=== PATIENT | male | born 1960 | race Caucasian/White ===

== ENCOUNTER 2017-06-30 18:12 | Observation (INO) | payer MEDICARE, OTHER ==
[2017-06-30] MEDS ORDERED: ASPIRIN 81 MG PO STA (18:29)
[2017-06-30] MEDS ORDERED: NITROGLYCERIN SL TABS 0.4 MG TAB SUBLINGUAL STA (18:29)
--- NOTE | 2017-06-30 18:34 | ED ---
Chest Pain HPI - General Chief Complaint: Chest Pain Stated Complaint: Chest pain Time Seen by Provider: 06/30/17 18:26 Source: patient, RN notes reviewed Mode of arrival: wheelchair Limitations: no limitations - History of Present Illness Initial Comments: 57-year-old male presents emergency Department chief complaint of chest pain that started a few hours prior arrival. Patient states it's centralized chest pain nonradiating. Patient states he did take a nitro prior to arrival and that helped some. He did not take any aspirin today. Patient has a history of CVA, hyperlipidemia, hypertension, smoker. Patient denies any history of diabetes. Patient denies any prior cardiac stents. He did have a heart cath in 2013. Patient denies any nausea, vomiting, diarrhea constipation. He does have some mild shortness of breath but states this is normal for his COPD. Patient believes he has had a blood clot before and he states that was next to his heart. Patient denies any diaphoretic episodes denies pain in his jaw or left arm. - Related Data Home Medications Medication Instructions Recorded Confirmed Carvedilol 25 mg PO BID 12/21/13 06/30/17 Isosorbide Mononitrate [Imdur] 30 mg PO DAILY 12/21/13 06/30/17 Aspirin 325 mg PO DAILY 12/23/13 06/30/17 Acetaminophen [Tylenol] 325 mg PO Q4H PRN 06/30/17 06/30/17 Atorvastatin [Lipitor] 20 mg PO DAILY 06/30/17 06/30/17 Furosemide [Lasix] 20 mg PO DAILY 06/30/17 06/30/17 Mometasone/Formoterol [Dulera 200 2 puff INHALATION RT-BID 06/30/17 06/30/17 Mcg/5 Mcg Inhaler] NIFEdipine [NIFEdipine ER] 30 mg PO DAILY 06/30/17 06/30/17 Nitroglycerin Sl Tabs [Nitrostat] 0.4 mg SUBLINGUAL Q5M PRN 06/30/17 06/30/17 Omeprazole 20 mg PO DAILY 06/30/17 06/30/17 Potassium Chloride [K-Tab ER] 10 meq PO DAILY 06/30/17 06/30/17 Allergies Allergy/AdvReac Type Severity Reaction Status Date / Time No Known Allergies Allergy Verified 06/30/17 18:47 Review of Systems ROS Statement: Those systems with pertinent positive or pertinent negative responses have been documented in the HPI. ROS Other: All systems not noted in ROS Statement are negative. EKG Findings - EKG Comments: EKG Findings:: EKG performed at 18:24 normal sinus rhythm with left axis deviation rate of 83 IN 176 QRS 18 QTC is QTC 386/453 there is Q waves noted Past Medical History Past Medical History: Coronary Artery Disease (CAD), Chest Pain / Angina, CVA/ TIA Additional Past Medical History / Comment(s): PT STATES HAD BLOOD CLOT NEAR HEART WAS PASSING OUT- HAD STROKE & SEVERAL TIA'S- AFFECTED SPEECH. PT STATES HARD TO WALK VERY FAR History of Any Multi-Drug Resistant Organisms: None Reported Past Surgical History: Adenoidectomy, Heart Catheterization, Tonsillectomy Additional Past Surgical History / Comment(s): HEART CATH 2000 AND . TONSILS & ADENOIDS REMOVED Past Anesthesia/Blood Transfusion Reactions: No Reported Reaction Past Psychological History: No Psychological Hx Reported Smoking Status: Current every day smoker Past Alcohol Use History: None Reported Past Drug Use History: None Reported - Past Family History Father Family Medical History: COPD Additional Family Medical History / Comment(s): FROM PERFORATED GASTRIC ULCER Mother Family Medical History: Cancer Additional Family Medical History / Comment(s): Patient stated mom of cancer, but not sure what kind. Sister(s) Family Medical History: Cancer Additional Family Medical History / Comment(s): Patient stated that little sister of lung cancer about at 30. General Exam Limitations: no limitations Course Vital Signs 06/30/17 06/30/17 06/30/17 18:16 18:38 18:45 Temperature 98.1 F Pulse Rate 86 85 82 Respiratory 20 18 18 Rate Blood Pressure 216/96 199/88 190/91 O2 Sat by Pulse 96 96 99 Oximetry 06/30/17 06/30/17 18:52 19:08 Temperature Pulse Rate 88 77 Respiratory 16 16 Rate Blood Pressure 173/82 182/84 O2 Sat by Pulse 98 100 Oximetry Chest Pain MDM - MDM 57-year-old male present emergency Department chief complaint of chest pain. Patient's lab work is essentially unremarkable EKG does not show any acute changes. Patient will be admitted for cardiology evaluation placed on heparin. Disposition Clinical Impression: Chest pain Disposition: ADMITTED IP TO THIS HOSP Condition: Stable Referrals: Yao Tinajero DO [Primary Care Provider] - 1-2 days
[2017-06-30 18:50] LABS: Basophils # (A) 0.1 k/uL (0-0.2); Basophils % (A) 1 %; Eosinophils # (A) 0.4 k/uL (0-0.7); Eosinophils % (A) 5 %; HCT 46.8 % (39.0-53.0); HGB 15.4 gm/dL (13.0-17.5); Lymphocytes # (A) 2.3 k/uL (1.0-4.8); Lymphocytes % (A) 25 %; MCH 32.8 pg (25.0-35.0); MCHC 32.8 g/dL (31.0-37.0); MCV 99.9 fL (80.0-100.0); Mean Platelet Volume 7.9; Monocytes # (A) 0.4 k/uL (0-1.0); Monocytes % (A) 4 %; Neutrophils # (A) 6.2 k/uL (1.3-7.7); Neutrophils % (A) 65 %; Platelet Count 164 k/uL (150-450); RBC 4.69 m/uL (4.30-5.90); RDW 13.5 % (11.5-15.5); WBC 9.5 k/uL (3.8-10.6)
[2017-06-30] MEDS ORDERED: NITROGLYCERIN OINT 1 INCH/GM PACKET TOPICAL STA (18:59)
[2017-06-30 19:04] LABS: D-Dimer 0.38 mg/L FEU (<0.60)
[2017-06-30 19:06] LABS: ALT 30 U/L (21-72); AST 14 U/L (17-59); Albumin 4.3 g/dL (3.5-5.0); Alkaline Phosphatase 89 U/L (38-126); Anion Gap 9 mmol/L; Blood Urea Nitrogen 8 mg/dL (9-20); Calcium 9.7 mg/dL (8.4-10.2); Carbon Dioxide 25 mmol/L (22-30); Chloride 108 mmol/L (98-107); Glucose 113 mg/dL (74-99); Lipase 77 U/L (23-300); Magnesium 1.9 mg/dL (1.6-2.3); Potassium 3.8 mmol/L (3.5-5.1); Sodium 142 mmol/L (137-145); Total Bilirubin 0.3 mg/dL (0.2-1.3); Total Protein 7.1 g/dL (6.3-8.2)
[2017-06-30 19:08] LABS: Creatine Kinase 46 U/L (55-170); INR 1.1 (<1.2); Partial Thromboplastin Time 28.4 sec (22.0-30.0); Prothrombin Time 10.3 sec (9.0-12.0)
--- NOTE | 2017-06-30 19:10 | XR ---
EXAMINATION: XR chest 2V DATE AND TIME: 06/30/2017 7:00 PM ORDERING PROVIDER: Ayo Menendez CLINICAL INDICATION: Chest Pain TECHNIQUE: PA and lateral COMPARISON: None. DESCRIPTION: The lungs are clear. The pleural spaces are negative. The cardiac silhouette is not enlarged. The mediastinal and pleural silhouettes are unremarkable. The skeletal structures are intact without focal findings. The soft tissues are unremarkable; the bilateral small opacities over the lower lung zones are consis tent with mildly prominent mammary tissue - within normal limits. IMPRESSION: NO ACUTE PROCESS.
[2017-06-30 19:21] LABS: Troponin I <0.012 ng/mL (0.000-0.034)
[2017-06-30 19:27] LABS: Creatine Kinase MB 0.3 ng/mL (0.0-2.4)
[2017-06-30 20:27] VITALS: RESP 18
[2017-06-30] MEDS ORDERED: HEPARIN SODIUM,PORCINE 5,000 UNIT/ML 1 ML VIAL IV ONE (20:44)
[2017-06-30] MEDS ORDERED: NITROGLYCERIN SL TABS 0.4 MG TAB SUBLINGUAL PRN (20:44)
[2017-06-30] MEDS ORDERED: HEPARIN SOD,PORK IN 0.45% NACL 25,000 UNIT in 0.45% NACL 1 500ML.BAG IV SCH (20:45)
[2017-06-30 22:01] VITALS: BMI 29.7
[2017-06-30] MEDS ORDERED: ACETAMINOPHEN TAB 325 MG TAB PO PRN (22:06)
[2017-06-30] MEDS ORDERED: METOPROLOL TARTRATE 5 MG/5 ML VIAL IVP PRN (22:09)
[2017-06-30] MEDS ORDERED: ALPRAZolam 0.25 MG TAB PO STA (22:09)
[2017-06-30] MEDS ORDERED: MORPHINE SULFATE 5 MG/ML SYRINGE IVP PRN (22:10)
[2017-06-30] MEDS: CARVEDILOL 12.5 MG TAB PO SCH (23:04)
[2017-06-30] MEDS: NICOTINE 21MG/24HR PATCH TRANSDERM SCH (23:05)
[2017-07-01 01:11] LABS: Creatine Kinase 41 U/L (55-170)
[2017-07-01 01:25] LABS: Creatine Kinase MB 0.4 ng/mL (0.0-2.4); Troponin I <0.012 ng/mL (0.000-0.034)
[2017-07-01 03:49] LABS: Cholesterol 141 mg/dL (<200); HDL Cholesterol 25 mg/dL (40-60); LDL Cholesterol,Calculated 83 mg/dL (0-99); Triglycerides 163 mg/dL (<150)
[2017-07-01] MEDS ORDERED: HEPARIN SODIUM,PORCINE 5,000 UNIT/ML 1 ML VIAL IV PRN (05:16)
[2017-07-01] MEDS: CARVEDILOL 12.5 MG TAB PO SCH (06:29)
[2017-07-01 06:53] LABS: Creatine Kinase 35 U/L (55-170)
[2017-07-01 07:06] LABS: Creatine Kinase MB 0.3 ng/mL (0.0-2.4); Troponin I <0.012 ng/mL (0.000-0.034)
[2017-07-01] MEDS ORDERED: PANTOPRAZOLE 40 MG TABLET PO SCH (07:30)
[2017-07-01] MEDS ORDERED: SYMBICORT 160-4.5 MCG INHALER INHALATION SCH (08:00)
[2017-07-01] MEDS ORDERED: NIFEdipine XL 30 MG TAB.ER.24 PO SCH (09:00)
[2017-07-01] MEDS ORDERED: ASPIRIN 325 MG TAB PO SCH (09:00)
[2017-07-01] MEDS ORDERED: ISOSORBIDE MONONITRATE ER 30 MG TAB.ER.24H PO SCH (09:00)
[2017-07-01] MEDS ORDERED: ATORVASTATIN 20 MG TAB PO SCH (09:00)
[2017-07-01] MEDS ORDERED: FUROSEMIDE 20 MG TAB PO SCH (09:00)
[2017-07-01] MEDS ORDERED: POTASSIUM CHLORIDE ER 10 MEQ TAB.ER.PRT PO SCH (09:00)
[2017-07-01] MEDS: NICOTINE 21MG/24HR PATCH TRANSDERM SCH (09:34)
--- NOTE | 2017-07-01 10:25 | P.CRDCN ---
History of Present Illness Consult date: 07/01/17 Requesting physician: Debra Murphy Consult reason: chest pain Chief complaint: Chest pain History of present illness: This is a 57-year-old gentleman with history of hypertension, prior CVA, hyperlipidemia, nicotine dependence, patient states he smokes one half pack cigarettes per day, used to smoke 3 packs of cigarettes per day, patient also has history of prior cardiac catheterization performed in 2013 which revealed a normal LAD, second obtuse marginal branch had approximately a 50% ostial stenosis at that time, RCA was small and nondominant and mild diffusely diseased. Maximal medical therapy was advised at that time. Patient presents to the hospital with symptoms of chest discomfort, states that he was helping to of his stepsons move her car, when he developed the symptoms. He denies any associated shortness of breath, no diaphoresis or nausea. Patient states he did take a sublingual nitroglycerin which gave him minimal relief of symptoms but did not take care of the pain completely. For this reason he came to the emergency room for further evaluation. Initial EKG on arrival here showed a normal sinus rhythm with left axis deviation and ST-T wave changes in the lateral leads. Subsequent EKG performed showed normal sinus rhythm with T-wave abnormality in the lateral leads, upon review of prior EKGs, patient was also noted to have similar changes in the lateral leads. Laboratory data was reviewed, troponins were negative 3. Sodium 142, potassium 3.8, BUN 8, creatinine 0.6. D-dimer 0.3. CBC normal. Blood pressure 126/80 with heart rate in the 70s, temperature 90.7, 99 on room air. At the time of my examination this morning, patient is currently chest pain-free. Currently on aspirin 325 mg daily, Lipitor 20 mg daily, Coreg 25 mg twice a day, Nitropaste. Past Medical History Past Medical History: Coronary Artery Disease (CAD), Chest Pain / Angina, CVA/ TIA Additional Past Medical History / Comment(s): PT STATES HAD BLOOD CLOT NEAR HEART WAS PASSING OUT- HAD STROKE & SEVERAL TIA'S- AFFECTED SPEECH. PT STATES HARD TO WALK VERY FAR History of Any Multi-Drug Resistant Organisms: None Reported Past Surgical History: Adenoidectomy, Heart Catheterization, Tonsillectomy Additional Past Surgical History / Comment(s): HEART CATH 2000 AND . TONSILS & ADENOIDS REMOVED Past Anesthesia/Blood Transfusion Reactions: No Reported Reaction Past Psychological History: No Psychological Hx Reported Smoking Status: Current every day smoker Past Alcohol Use History: None Reported Past Drug Use History: None Reported - Past Family History Father Family Medical History: COPD Additional Family Medical History / Comment(s): FROM PERFORATED GASTRIC ULCER Mother Family Medical History: Cancer Additional Family Medical History / Comment(s): Patient stated mom of cancer, but not sure what kind. Sister(s) Family Medical History: Cancer Additional Family Medical History / Comment(s): Patient stated that little sister of lung cancer about at 30. Medications and Allergies Home Medications Medication Instructions Recorded Confirmed Type Carvedilol 25 mg PO BID 12/21/13 06/30/17 History Isosorbide Mononitrate [Imdur] 30 mg PO DAILY 12/21/13 06/30/17 History Aspirin 325 mg PO DAILY 12/23/13 06/30/17 History Acetaminophen [Tylenol] 325 mg PO Q4H PRN 06/30/17 06/30/17 History Atorvastatin [Lipitor] 20 mg PO DAILY 06/30/17 06/30/17 History Furosemide [Lasix] 20 mg PO DAILY 06/30/17 06/30/17 History Mometasone/Formoterol [Dulera 200 2 puff INHALATION RT-BID 06/30/17 06/30/17 History Mcg/5 Mcg Inhaler] NIFEdipine [NIFEdipine ER] 30 mg PO DAILY 06/30/17 06/30/17 History Nitroglycerin Sl Tabs [Nitrostat] 0.4 mg SUBLINGUAL Q5M PRN 06/30/17 06/30/17 History Omeprazole 20 mg PO DAILY 06/30/17 06/30/17 History Potassium Chloride [K-Tab ER] 10 meq PO DAILY 06/30/17 06/30/17 History Allergies Allergy/AdvReac Type Severity Reaction Status Date / Time No Known Allergies Allergy Verified 06/30/17 18:47 Physical Exam Vitals: Vital Signs Temp Pulse Pulse Resp BP BP Pulse Ox 07/01/17 04:00 97.0 F L 72 18 126/82 99 07/01/17 00:10 96.5 F L 73 18 158/72 96 06/30/17 21:35 96.7 F L 73 18 199/106 97 06/30/17 21:12 98.3 F 80 18 178/83 99 06/30/17 20:25 77 18 185/81 99 06/30/17 19:08 77 16 182/84 100 06/30/17 18:52 88 16 173/82 98 06/30/17 18:45 82 18 190/91 99 06/30/17 18:38 85 18 199/88 96 06/30/17 18:16 98.1 F 86 20 216/96 96 Intake and Output 06/30/17 07/01/17 07/01/17 22:59 06:59 14:59 Intake Total 162.333 Balance 162.333 Intake: Intake, IV Titration 162.333 Amount Heparin Sod,Pork in 0.45% 162.333 NaCl 25,000 unit In 0.45 % NaCl 1 500ml.bag @ 20 mls/hr IV .Q24H [facility] Rx#: [id number] Other: Voiding Method Toilet # Voids 1 Weight 91.172 kg 94.8 kg PHYSICAL EXAMINATION: HEENT: Head is atraumatic, normocephalic. Pupils equal, round. Neck is supple. There is no elevated jugular venous pressure. HEART EXAMINATION: Heart S1, S2 normal. No murmur or gallop heard. CHEST EXAMINATION: Lungs are clear to auscultation and precussion. No chest wall tenderness is noted on palpation or with deep breathing. ABDOMEN: Soft, nontender. Bowel sounds are heard. No organomegaly noted. EXTREMITIES: 2+ peripheral pulses with no evidence of peripheral edema and no calf tenderness noted. NEUROLOGIC patient is awake, alert and oriented -3. . Results 06/30/17 18:37 06/30/17 18:37 Cardiac Enzymes 06/30/17 06/30/17 07/01/17 Range/Units 18:37 18:37 00:23 AST 14 L (17-59) U/L CK-MB (CK-2) 0.3 0.4 (0.0-2.4) ng/mL Troponin I <0.012 <0.012 (0.000-0.034) ng/mL 07/01/17 Range/Units 05:47 AST (17-59) U/L CK-MB (CK-2) 0.3 (0.0-2.4) ng/mL Troponin I <0.012 (0.000-0.034) ng/mL Coagulation 06/30/17 07/01/17 Range/Units 18:37 02:57 PT 10.3 (9.0-12.0) sec APTT 28.4 33.2 H (22.0-30.0) sec Lipids 07/01/17 Range/Units 02:57 Triglycerides 163 H (<150) mg/dL Cholesterol 141 (<200) mg/dL HDL Cholesterol 25 L (40-60) mg/dL CBC 06/30/17 Range/Units 18:37 WBC 9.5 (3.8-10.6) k/uL RBC 4.69 (4.30-5.90) m/uL Hgb 15.4 (13.0-17.5) gm/dL Hct 46.8 (39.0-53.0) % Plt Count 164 (150-450) k/uL Comprehensive Metabolic Panel 06/30/17 Range/Units 18:37 Sodium 142 (137-145) mmol/L Potassium 3.8 (3.5-5.1) mmol/L Chloride 108 H (98-107) mmol/L Carbon Dioxide 25 (22-30) mmol/L BUN 8 L (9-20) mg/dL Creatinine 0.63 L (0.66-1.25) mg/dL Glucose 113 H (74-99) mg/dL Calcium 9.7 (8.4-10.2) mg/dL AST 14 L (17-59) U/L ALT 30 (21-72) U/L Alkaline Phosphatase 89 (38-126) U/L Total Protein 7.1 (6.3-8.2) g/dL Albumin 4.3 (3.5-5.0) g/dL Current Medications Generic Name Dose Route Start Last Admin Trade Name Freq PRN Reason Stop Dose Admin Acetaminophen 325 mg 06/30/17 22:06 Tylenol Tab PO Q4H PRN Pain Aspirin 325 mg 07/01/17 09:00 07/01/17 09:35 Aspirin PO 325 mg DAILY MICHAEL Administration Atorvastatin Calcium 20 mg 07/01/17 09:00 07/01/17 09:34 Lipitor PO 20 mg DAILY MICHAEL Administration Budesonide/Formoterol Fumarate 2 puff 07/01/17 08:00 07/01/17 08:42 Symbicort 160-4.5 Mcg Inhaler INHALATION 2 puff RT-BID MICHAEL Administration Carvedilol 25 mg 06/30/17 22:15 07/01/17 06:29 Coreg PO 25 mg AC-BID MICHAEL Administration Furosemide 20 mg 07/01/17 09:00 07/01/17 09:35 Lasix PO 20 mg DAILY MICHAEL Administration Heparin Sodium (Porcine) 0 unit 07/01/17 05:16 07/01/17 06:27 Heparin IV 4,000 unit PER PROTOCOL PRN Administration Low PTT Protocol Heparin Sodium/Sodium Chloride 500 mls @ 20 mls/hr 06/30/17 20:45 07/01/17 05 :17 25,000 unit/ Sodium Chloride IV 13.9 units/kg/hr .Q24H MICHAEL 25.34 mls/hr Protocol Titration Isosorbide Mononitrate 30 mg 07/01/17 09:00 07/01/17 09:35 Imdur PO 30 mg DAILY MICHAEL Administration Metoprolol Tartrate 10 mg 06/30/17 22:09 Lopressor IVP Q6HR PRN for SBP >160 Morphine Sulfate 4 mg 06/30/17 22:10 Morphine Sulfate IVP Q6HR PRN Moderate to Severe Pain Nicotine 1 patch 06/30/17 22:15 07/01/17 09:34 Habitrol 21mg/24hr Patch TRANSDERM 1 patch DAILY MICHAEL Administration Nifedipine 30 mg 07/01/17 09:00 07/01/17 09:35 Procardia Xl PO 30 mg DAILY MICHAEL Administration Nitroglycerin 0.4 mg 06/30/17 20:44 Nitrostat SUBLINGUAL Q5M PRN Chest Pain Pantoprazole Sodium 40 mg 07/01/17 07:30 07/01/17 06:28 Protonix PO 40 mg AC-BRKFST MICHAEL Administration Potassium Chloride 10 meq 07/01/17 09:00 07/01/17 09:35 K-Dur 10 PO 10 meq DAILY MICHAEL Administration Intake and Output 06/30/17 07/01/17 07/01/17 22:59 06:59 14:59 Intake Total 162.333 Balance 162.333 Intake: Intake, IV Titration 162.333 Amount Heparin Sod,Pork in 0.45% 162.333 NaCl 25,000 unit In 0.45 % NaCl 1 500ml.bag @ 20 mls/hr IV .Q24H MICHAEL Rx#: [id number] Other: Voiding Method Toilet # Voids 1 Weight 91.172 kg 94.8 kg 06/30/17 18:37 06/30/17 18:37 EKG Interpretations (text) EKG shows normal sinus rhythm with lateral ST-T wave changes Assessment and Plan Plan: Assessment and plan #1 chest pain, troponins negative 3. EKG shows normal sinus rhythm with ST-T wave changes in the lateral leads, similar to prior EKGs. Patient did undergo cardiac catheterization in 2013 which revealed a normal LAD, right coronary artery was small nondominant and mild diffusely disease, circumflex artery is dominant in distribution, the second obtuse marginal branch had about 50% ostial stenosis. Medical therapy advised at that time #2 hypertension #3 hyperlipidemia #4 nicotine dependence #5 COPD #6 of prior CVA Plan We will obtain an echocardiogram with Doppler study. We will discontinue the IV Lopressor. Continue Coreg, aspirin, Lipitor, Imdur, Nitropaste and Procardia. Patient has been advised to undergo a Lexiscan stress test. Stress test is negative he may be able to be discharged from cardiology's perspective, the stress test is positive patient may need repeat cardiac catheterization. Further recommendations will be based on these findings and the patient's clinical course. DNP note has been reviewed, I agree with a documented findings and plan of care. Patient was seen and examined.
[2017-07-01] MEDS ORDERED: REGADENOSON 0.4 MG/5 ML SYRINGE IV ONE (11:16)
[2017-07-01] MEDS ORDERED: AMINOPHYLLINE 500 MG/20 ML VIAL IV PRN (11:16)
--- NOTE | 2017-07-01 13:27 | ECHOF ---
Referral Reason:chest pain MEASUREMENTS -------- HEIGHT: 175.3 cm WEIGHT: 91.2 kg BP: 126/82 RVIDd: 3.0 cm (< 3.3) IVSd: 1.5 cm (0.6 - 1.1) LVIDd: 6.0 cm (3.9 - 5.3) LVPWd: 1.6 cm (0.6 - 1.1) IVSs: 1.9 cm LVIDs: 4.6 cm LVPWs: 2.0 cm LAESV Index (A-L): 34.68 ml/m Ao Diam: 4.0 cm (2.0 - 3.7) AV Cusp: 1.6 cm (1.5 - 2.6) LA Diam: 2.6 cm (2.7 - 3.8) EPSS: 1.9 cm MV E Robert: 0.90 m/s MV DecT: 254 ms MV A Robert: 0.89 m/s MV E/A Ratio: 1.01 RAP: 5.00 mmHg RVSP: 9.09 mmHg MV EF SLOPE: 61.46 mm/s (70 - 150) MV EXCURSION: 2.10 cm (> 18.000) FINDINGS -------- Sinus rhythm. This was a technically adequate study. The left ventricular size is normal. There is borderline concentric left ventricular hypertrophy. Overall left ventricular systolic function is mildly impaired with, an EF between 45 - 50 %. Basal anterior LV wall motion is hypokinetic. Mid anterior LV wall motion is hypokinetic. The right ventricle is normal in size and function. LA is moderately dilated 34-39 ml/m2 The right atrium is normal in size. Aortic valve is trileaflet and is mildly thickened. There is no evidence of aortic regurgitation. There is no evidence of aortic stenosis. The mitral valve leaflets are mildly thickened. There is trace mitral regurgitation. Trace tricuspid regurgitation present. Right ventricular systolic pressure is normal at < 35 mmHg. There is no evidence of pulmonary hypertension. The pulmonic valve was not well visualized. The aortic root size is normal. Normal inferior vena cava with normal inspiratory collapse consistent with estimated right atrial pre ssure of 5 mmHg. The pericardium is normal. There is no pericardial effusion. CONCLUSIONS -------- 1. Sinus rhythm. 2. This was a technically adequate study. 3. The left ventricular size is normal. 4. There is borderline concentric left ventricular hypertrophy. 5. Overall left ventricular systolic function is mildly impaired with, an EF between 45 - 50 %. 6. LA is moderately dilated 34-39 ml/m2 7. Aortic valve is trileaflet and is mildly thickened. 8. The mitral valve leaflets are mildly thickened. 9. There is trace mitral regurgitation. 10. Trace tricuspid regurgitation present. 11. Right ventricular systolic pressure is normal at < 35 mmHg. 12. There is no evidence of pulmonary hypertension. 13. The pulmonic valve was not well visualized. 14. The aortic root size is normal. 15. There is no pericardial effusion. HOME AIDE: Berlin Patel RDCS
--- NOTE | 2017-07-01 13:51 | NM ---
EXAMINATION TYPE: NM stress lexiscan cardiolite DATE OF EXAM: 07/01/2017 COMPARISON: 07/23/2012 HISTORY: Chest pain TECHNIQUE: After the intravenous administration of 10.94 mCi Tc 99m Sestamibi - Cardiolite resting S PECT images acquired 45 minutes post injection. The patient received 0.4mg Lexiscan, 26.3 mCi Tc 99m Sestamibi - Stress images obtained [address] injection FINDINGS: Review of stress and rest SPECT images demonstrates no reversible perfusion abnormality. Gated carla sis shows normal wall motion with an estimated left ventricular ejection fraction of 41 %. Mild physi ologic apical thinning is noted more prominent on rest than stress images. TID is calculated at 1.1, within normal limits. IMPRESSION: 1. No scintigraphic evidence for reversible ischemia. 2. Decreased ejection fraction of 41%, progressively decreased from the prior of 2012 where it measur ed 43%.
--- NOTE | 2017-07-01 14:13 | EST ---
EXERCISE STRESS AGE: 57 SEX: M HT: 5'9" WT: 208 PROTOCOL: Lexiscan Cardiolite Stress Test HEART RATE REST: 60 BLOOD PRESSURE REST: 170/70 MAXIMUM HEART RATE ACHIEVED: 96 MAXIMUM BLOOD PRESSURE: 177/81 85% MPHR: 139 100% MPHR: 163 INDICATIONS: Chest pain. CLINICAL INFORMATION: Baseline EKG revealed normal sinus rhythm with inferolateral nonspecific ST and T-wave changes. With Lexiscan administration, heart rate changed from 60 to 96 beats per minute. Blood pressure changed from 170/70 to 177/81. EKG remained inconclusive. Patient did not have any significant symptoms. IMPRESSION: 1. By EKG criteria, this is an inconclusive Lexiscan stress test because of resting EKG changes. 2. The nuclear scan results which are more pertinent, will be reported by the radiologist. MMODL / IJN: [id number] /
[2017-07-01 16:40] VITALS: BP 132/80; PULSE 70; TEMP 97.6
--- NOTE | 2017-07-01 17:10 | P.HPIM ---
History of Present Illness H&P Date: 07/01/17 (This document was also both an H&P and discharge summary) Chief Complaint: Central chest pain 57 years old patient of Dr. 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 Patient was also complaining of dry cough for the past few days, started to have some whitish sputum production today. He denies any fever or chills. He does endorses some muscle pain below his ribs due to coughing. EKG done in the ER suggested normal sinus rhythm with some left axis deviation and ST- T wave changes which was similar to the previous EKGs. Troponin 3 negative. Patient underwent cardiology evaluation. Stress test was done which was negative. On evaluation patient had some mild wheezing concerning for bronchitis. Patient will be discharged on azithromycin Imdur dose will be increased Discharge diagnosis, 1. Noncardiac chest pain 2. Acute bronchitis 3. Hypertension 4. Hyperlipidemia 5. Nicotine dependence 6.COPD 7. TIA /CVA Review of Systems Constitutional: Denies chills, Denies fever, Denies lethargy, Denies malaise, Denies poor appetite, Denies weakness, Denies weight loss Eyes: denies decreased vision, denies diplopia, denies discharge, denies pain Ears: deny: decreased hearing Ears, nose, mouth and throat: Denies dental pain, Denies headache, Denies nasal discharge, Denies nose pain Cardiovascular: Endorses chest pain, endorses decreased exercise tolerance, Denies edema, Denies high blood pressure, Denies irregular heart beat, Denies palpitations, Denies paroxysmal nocturnal dyspnea, Denies rapid heart beat, Denies shortness of breath Respiratory: Endorses congestion, endorses cough, endorses cough with sputum, Denies dyspnea, Denies home oxygen, Denies wheezing Gastrointestinal: Denies abdominal pain, Denies change in bowel habits, Denies coffee ground emesis, Denies early satiety, Denies excessive gas, Denies heartburn, Denies hematemesis, Denies hematochezia, Denies loss of appetite, Denies nausea, Denies vomiting Genitourinary: Denies dysuria, Denies flank pain, Denies kidney stones, Denies menorrhagia, Denies urgency, Denies urinary frequency Musculoskeletal: Denies gait dysfunction, Denies limitation of motion, Denies morning stiffness, Denies muscle cramps Integumentary: Denies rash, Denies wounds, Denies brittle nails, Denies change in hair/nails, Denies darkening of skin Neurological: Denies balance difficulties, Denies change in speech, Denies double vision, Denies gait dysfunction, Denies loss of vision, Denies motor disturbance, Denies numbness, Denies paralysis, Denies paresthesias, Denies seizures Psychiatric: Denies anxiety, Denies depression Endocrine: Denies excessive sweating, Denies excessive thirst, Denies high blood sugars, Denies palpitations Hematologic/Lymphatic: Denies easy bruising, Denies lymphadenopathy Past Medical History Past Medical History: Coronary Artery Disease (CAD), Chest Pain / Angina, CVA/ TIA Additional Past Medical History / Comment(s): PT STATES HAD BLOOD CLOT NEAR HEART WAS PASSING OUT- HAD STROKE & SEVERAL TIA'S- AFFECTED SPEECH. PT STATES HARD TO WALK VERY FAR History of Any Multi-Drug Resistant Organisms: None Reported Past Surgical History: Adenoidectomy, Heart Catheterization, Tonsillectomy Additional Past Surgical History / Comment(s): HEART CATH 2000 AND . TONSILS & ADENOIDS REMOVED Past Anesthesia/Blood Transfusion Reactions: No Reported Reaction Past Psychological History: No Psychological Hx Reported Smoking Status: Current every day smoker (Smokes half pack a day, used to smoke 3 packs a day currently trying to quit) Past Alcohol Use History: None Reported Past Drug Use History: None Reported - Past Family History Father Family Medical History: COPD Additional Family Medical History / Comment(s): FROM PERFORATED GASTRIC ULCER Mother Family Medical History: Cancer Additional Family Medical History / Comment(s): Patient stated mom of cancer, but not sure what kind. Sister(s) Family Medical History: Cancer Additional Family Medical History / Comment(s): Patient stated that little sister of lung cancer about at 30. Medications and Allergies Home Medications Medication Instructions Recorded Confirmed Type Carvedilol 25 mg PO BID 12/21/13 06/30/17 History Aspirin 325 mg PO DAILY 12/23/13 06/30/17 History Acetaminophen [Tylenol] 325 mg PO Q4H PRN 06/30/17 06/30/17 History Atorvastatin [Lipitor] 20 mg PO DAILY 06/30/17 06/30/17 History Furosemide [Lasix] 20 mg PO DAILY 06/30/17 06/30/17 History Mometasone/Formoterol [Dulera 200 2 puff INHALATION RT-BID 06/30/17 06/30/17 History Mcg/5 Mcg Inhaler] NIFEdipine [NIFEdipine ER] 30 mg PO DAILY 06/30/17 06/30/17 History Nitroglycerin Sl Tabs [Nitrostat] 0.4 mg SUBLINGUAL Q5M PRN 06/30/17 06/30/17 History Omeprazole 20 mg PO DAILY 06/30/17 06/30/17 History Potassium Chloride [K-Tab ER] 10 meq PO DAILY 06/30/17 06/30/17 History Azithromycin [Zithromax] 250 mg PO DIRECTED #6 tab 07/01/17 Rx Isosorbide Mononitrate ER [Imdur] 60 mg PO DAILY tab.er.24h 07/01/17 Rx Allergies Allergy/AdvReac Type Severity Reaction Status Date / Time No Known Allergies Allergy Verified 06/30/17 18:47 Physical Exam Vitals: Vital Signs Temp Pulse Pulse Resp BP BP Pulse Ox 07/01/17 16:00 97.6 F 70 18 132/80 97 07/01/17 14:34 98.2 F 72 18 136/73 97 07/01/17 08:00 97.8 F 68 18 157/72 97 07/01/17 04:00 97.0 F L 72 18 126/82 99 07/01/17 00:10 96.5 F L 73 18 158/72 96 06/30/17 21:35 96.7 F L 73 18 199/106 97 06/30/17 21:12 98.3 F 80 18 178/83 99 06/30/17 20:25 77 18 185/81 99 06/30/17 19:08 77 16 182/84 100 06/30/17 18:52 88 16 173/82 98 06/30/17 18:45 82 18 190/91 99 06/30/17 18:38 85 18 199/88 96 06/30/17 18:16 98.1 F 86 20 216/96 96 Intake and Output 07/01/17 07/01/17 07/01/17 06:59 14:59 22:59 Intake Total 162.333 Balance 162.333 Intake: Intake, IV Titration 162.333 Amount Heparin Sod,Pork in 0.45% 162.333 NaCl 25,000 unit In 0.45 % NaCl 1 500ml.bag @ 20 mls/hr IV .Q[facility]H [facility] Rx#: [id number] Other: Voiding Method Toilet # Voids 2 Weight 94.8 kg - Constitutional General appearance: cooperative, no acute distress, obese - EENT Eyes: anicteric sclerae, PERRLA, normal appearance ENT: hearing grossly normal - Neck Neck: no lymphadenopathy, normal ROM, no other, no rigidity, no stridor, no thyromegaly - Respiratory Respiratory: bilateral: CTA, mild wheezes bilaterally negative: diminished, dullness, rales, rhonchi - Cardiovascular Rhythm: regular Heart sounds: normal: S1, S2 Abnormal Heart Sounds: no systolic murmur, no diastolic murmur, no rub, no S3 Gallop, no S4 Gallop, no click, no tenderness to palpation - Gastrointestinal General gastrointestinal: normal bowel sounds, soft - Integumentary Integumentary: no rash - Neurologic Neurologic: CNII-XII intact - Musculoskeletal Musculoskeletal: gait normal, strength equal bilaterally - Psychiatric Psychiatric: A&O x's 3, appropriate affect Results CBC & Chem 7: 06/30/17 18:37 06/30/17 18:37 Labs: Abnormal Lab Results - Last 24 Hours (Table) 06/30/17 06/30/17 07/01/17 Range/Units 18:37 18:37 00:23 APTT (22.0-30.0) sec Chloride 108 H (98-107) mmol/L BUN 8 L (9-20) mg/dL Creatinine 0.63 L (0.66-1.25) mg/dL Glucose 113 H (74-99) mg/dL AST 14 L (17-59) U/L Total Creatine Kinase 46 L 41 L (55-170) U/L Triglycerides (<150) mg/dL HDL Cholesterol (40-60) mg/dL 12/07/01/17 07/01/17 Range/Units 02:57 02:57 05:47 APTT 33.2 H (22.0-30.0) sec Chloride (98-107) mmol/L BUN (9-20) mg/dL Creatinine (0.66-1.25) mg/dL Glucose (74-99) mg/dL AST (17-59) U/L Total Creatine Kinase 35 L (55-170) U/L Triglycerides 163 H (<150) mg/dL HDL Cholesterol 25 L (40-60) mg/dL 07/01/17 Range/Units 10:30 APTT 42.6 H (22.0-30.0) sec Chloride (98-107) mmol/L BUN (9-20) mg/dL Creatinine (0.66-1.25) mg/dL Glucose (74-99) mg/dL AST (17-59) U/L Total Creatine Kinase (55-170) U/L Triglycerides (<150) mg/dL HDL Cholesterol (40-60) mg/dL Thrombosis Risk Factor Assmnt - DVT/VTE Prophylaxis DVT/VTE Prophylaxis: Pharmacologic Prophylaxis ordered - Choose All That Apply Any of the Below Risk Factors Present?: Yes Each Factor Represents 1 point: Abnormal pulmonary function (COPD), Age 41-60 years Other Risk Factors: No Other congenital or acquired thrombophilia - If yes, enter type in comment: No Thrombosis Risk Factor Assessment Total Risk Factor Score: 2 Thrombosis Risk Factor Assessment Level: Low Risk Assessment and Plan Plan: #1 acute chest pain likely noncardiac chest pain - history of coronary artery disease, EKG with normal sinus rhythm and ST-T wave changes in the lateral leads similar to the prior EKGs. Stress test negative #2 acute bronchitis- wheezing present on examination, cough with sputum production, I will treat patient for bronchitis with azithromycin #3 CVA/TIA- continue daily aspirin and atorvastatin #4 coronary artery disease continue Coreg, atorvastatin, aspirin, Procardia. Imdur increased to 60 mg daily to help with angina #5 COPD- stable #6 GERD continue omeprazole #7 DVT prophylaxis - patient was on heparin drip #8 CODE STATUS DO NOT RESUSCITATE
== END 2017-07-01 18:30 | disposition home or self-care (01) ==
LOC: EC 18:12 → 6SEL 20:34
PROVIDERS: ADMIT Internal Medicine; ATTEND Internal Medicine
DX: R07.89 Other chest pain (principal); J44.0 Chronic obstructive pulmonary disease with (acute) lower respiratory infection; J20.9 Acute bronchitis, unspecified; F17.210 Nicotine dependence, cigarettes, uncomplicated; I10 Essential (primary) hypertension; E78.5 Hyperlipidemia, unspecified; I25.10 Atherosclerotic heart disease of native coronary artery without angina pectoris; K21.9 Gastro-esophageal reflux disease without esophagitis; I69.328 Other speech and language deficits following cerebral infarction; Z86.718 Personal history of other venous thrombosis and embolism; Z79.82 Long term (current) use of aspirin; Z79.899 Other long term (current) drug therapy; Z79.51 Long term (current) use of inhaled steroids; Z82.5 Family history of asthma and other chronic lower respiratory diseases; Z66 Do not resuscitate
CPT/HCPCS: 96376 ×2; 96366 ×2; 96365; 99285; 36415; 94640; 93005; 93017; 93306; 85379; 80061; 80053; 82550 ×2; 82553 ×2; 83690; 83735; 84484 ×2; 85025; 85610; 85730 ×2; 71020; 78452; G0378 ×2; A9500; S4990 ×2; J1644 ×3; J2785

== ENCOUNTER 2021-03-11 14:24 | Emergency (ER) | payer MEDICARE, OTHER ==
[2021-03-11 14:36] VITALS: TEMP 98.3
[2021-03-11] MEDS ORDERED: KETOROLAC 15 MG/ML 1 ML VIAL IVP STA (14:57)
[2021-03-11] MEDS ORDERED: LIDOCAINE 5% PATCH TOPICAL STA (14:57)
[2021-03-11] MEDS ORDERED: CYCLOBENZAPRINE 10MG STARTER 3 TAB BTL PO STA (14:58)
--- NOTE | 2021-03-11 15:35 | XR ---
EXAMINATION TYPE: XR lumbar spine 2 or 3V DATE OF EXAM: 03/11/2021 CLINICAL HISTORY: Back pain TECHNIQUE: Frontal and lateral views of the lumbar spine were obtained and coned down views of the mikal mbosacral junction. COMPARISON: None available FINDINGS: Transitional lumbosacral anatomy with partial lumbarization of the S1 sacral body and incomplete fusi on of the posterior S1 process. No acute fracture or subluxation. Straightening of the lumbar lordosis. Moderate degenerative disc changes with osteophyte formation and disc height loss most pronounced at L1-2. Moderate facet arthropathy at L4-5 and L5-S1. Atherosclerotic calcifications of the abdominal aorta and common iliac vessels. IMPRESSION: 1. No acute fracture or dislocation is seen in the lumbar spine. 2. Moderate multilevel degenerative changes.
--- NOTE | 2021-03-11 15:40 | ED ---
Back Pain HPI - General Chief Complaint: Back Pain/Injury Stated Complaint: back pain Time Seen by Provider: 03/11/21 14:40 Source: patient Limitations: no limitations - History of Present Illness Initial Comments: 60-year-old male presents to the emergency department with a chief complaint of back pain. He reports history of chronic back pain but states about one week ago he rode back from [place] and began to experience pain in the lower back region that is radiating along the posterior aspect of her left lower extremity. Patient reports the pain is exacerbated with left and right rotation or pain with movement in the leg. He denies any direct injury to her back. Denies any saddle anesthesia, loss of bowel or bladder function. Denies any abdominal pain, infectious or obstructive urinary symptoms. - Related Data Home Medications Medication Instructions Recorded Confirmed Carvedilol 25 mg PO BID 12/21/13 03/11/21 Acetaminophen [Tylenol] 325 mg PO DAILY 06/30/17 03/11/21 Atorvastatin [Lipitor] 20 mg PO HS 06/30/17 03/11/21 Furosemide [Lasix] 20 mg PO DAILY 06/30/17 03/11/21 Nitroglycerin Sl Tabs [Nitrostat] 0.4 mg SUBLINGUAL Q5M PRN 06/30/17 03/11/21 Omeprazole 20 mg PO BID 06/30/17 03/11/21 ALPRAZolam [Xanax] 1 mg PO BID PRN 03/11/21 03/11/21 Aspirin EC [Ecotrin Low Dose] 81 mg PO DAILY 03/11/21 03/11/21 Budesonide/Formoterol Fumarate 2 puff INHALATION RT-BID 03/11/21 03/11/21 [Symbicort 160-4.5 Mcg Inhaler] Clobetasol Propionate [Temovate 1 applic TOPICAL BID 03/11/21 03/11/21 0.05% Cream] Hydrocortisone Cream 1 applic TOPICAL BID 03/11/21 03/11/21 [Hydrocortisone 2.5% Cream] Isosorbide Mononitrate ER [Imdur] 30 mg PO DAILY 03/11/21 03/11/21 NIFEdipine [NIFEdipine ER] 30 mg PO DAILY 03/11/21 03/11/21 Potassium Chloride ER [K-Dur 20] 20 meq PO BID 03/11/21 03/11/21 Triamcinolone 0.1% Cream [Kenalog 1 applicatio TOPICAL BID 03/11/21 03/11/21 0.1% Cream] Previous Rx's Medication Instructions Recorded Cyclobenzaprine [Flexeril] 10 mg PO TID PRN #15 tab 03/11/21 Allergies Allergy/AdvReac Type Severity Reaction Status Date / Time No Known Allergies Allergy Verified 03/11/21 14:59 Review of Systems ROS Statement: Those systems with pertinent positive or pertinent negative responses have been documented in the HPI. ROS Other: All systems not noted in ROS Statement are negative. Past Medical History Past Medical History: Coronary Artery Disease (CAD), Chest Pain / Angina, COPD, CVA/TIA Additional Past Medical History / Comment(s): PT STATES HAD BLOOD CLOT NEAR HEART WAS PASSING OUT- HAD STROKE & SEVERAL TIA'S- AFFECTED SPEECH. PT STATES HARD TO WALK VERY FAR History of Any Multi-Drug Resistant Organisms: None Reported Past Surgical History: Adenoidectomy, Heart Catheterization, Tonsillectomy Additional Past Surgical History / Comment(s): HEART CATH 2000 AND . T ONSILS & ADENOIDS REMOVED Past Anesthesia/Blood Transfusion Reactions: No Reported Reaction Past Psychological History: No Psychological Hx Reported Smoking Status: Current every day smoker Past Alcohol Use History: None Reported Past Drug Use History: None Reported - Past Family History Father Family Medical History: COPD Additional Family Medical History / Comment(s): FROM PERFORATED GASTRIC ULCER Mother Family Medical History: Cancer Additional Family Medical History / Comment(s): Patient stated mom of cancer, but not sure what kind. Sister(s) Family Medical History: Cancer Additional Family Medical History / Comment(s): Patient stated that little sister of lung cancer about at 30. General Exam Limitations: no limitations General appearance: alert, in no apparent distress, obese Head exam: Present: atraumatic, normocephalic, normal inspection Eye exam: Present: normal appearance, EOMI ENT exam: Present: normal exam, normal oropharynx, mucous membranes moist Neck exam: Present: normal inspection, full ROM. Absent: tenderness, lymphadenopathy Respiratory exam: Present: normal lung sounds bilaterally. Absent: respiratory distress Cardiovascular Exam: Present: regular rate, normal rhythm, normal heart sounds GI/Abdominal exam: Present: soft. Absent: distended, tenderness, guarding Extremities exam: Present: normal inspection, full ROM, normal capillary refill, other (Palpable DP and PT bilaterally). Absent: tenderness, pedal edema, joint swelling, calf tenderness Back exam: Present: normal inspection, full ROM, tenderness, paraspinal tenderness (The left paraspinal tenderness in the lumbar region). Absent: vertebral tenderness Neurological exam: Present: alert, oriented X3 Psychiatric exam: Present: normal affect, normal mood Skin exam: Present: warm, dry, intact, normal color Course Vital Signs 03/11/21 03/11/21 14:33 15:45 Temperature 98.3 F Pulse Rate 80 94 Respiratory 20 18 Rate Blood Pressure 184/82 140/88 O2 Sat by Pulse 99 99 Oximetry Medical Decision Making - Medical Decision Making 60-year-old female presenting to emergency Department with a chief complaint of back pain. This appears to be acute on chronic back pain. No concern for cauda equina. Patient was given Lidoderm patch and Toradol for the pain. This improved his symptoms. Patient was given also Flexeril starter pack and will be discharged with Flexeril. X-ray reveals multilevel generative disc changes. Patient was advised to follow-up with an research specialist. I advised to alternate between Tylenol Motrin for pain control. Return parameters were th oroughly discussed the patient is an attending agreeable. Disposition Clinical Impression: Mechanical back pain, Strain of lumbar region Disposition: HOME SELF-CARE Condition: Stable Instructions (If sedation given, give patient instructions): Acute Low Back Pain (ED) Additional Instructions: Please return to the Emergency Department if symptoms worsen or any other concerns. Follow up with research specialist. Prescriptions: Cyclobenzaprine [Flexeril] 10 mg PO TID PRN #15 tab PRN Reason: Muscle Spasm Is patient prescribed a controlled substance at d/c from ED?: No Referrals: Yao Tinajero DO [Primary Care Provider] - 1-2 days Gerry Yancey DO [Doctor of Osteopathic Medicine] - 1-2 days Time of Disposition: 15:40
[2021-03-11 16:09] VITALS: BP 140/88; PULSE 94; RESP 18
== END 2021-03-11 15:45 | disposition home or self-care (01) ==
LOC: EC 14:24
DX: S39.012A Strain of muscle, fascia and tendon of lower back, initial encounter (principal); M54.9 Dorsalgia, unspecified; J44.9 Chronic obstructive pulmonary disease, unspecified; I25.10 Atherosclerotic heart disease of native coronary artery without angina pectoris; I25.119 Atherosclerotic heart disease of native coronary artery with unspecified angina pectoris; F17.200 Nicotine dependence, unspecified, uncomplicated; Z86.73 Personal history of transient ischemic attack (TIA), and cerebral infarction without residual deficits; Z79.899 Other long term (current) drug therapy; Z79.82 Long term (current) use of aspirin; X50.0XXA Overexertion from strenuous movement or load, initial encounter; Y92.89 Other specified places as the place of occurrence of the external cause
CPT/HCPCS: 72100; 99283; 96374; J1885

== ENCOUNTER 2021-11-18 09:49 | Emergency (ER) | payer MEDICARE, OTHER ==
[2021-11-18] MEDS ORDERED: ALBUTEROL NEBULIZED 2.5 MG/3 ML INHALATION STA (10:46)
[2021-11-18] MEDS ORDERED: methylPREDNISolone SOD SUCCI 125 MG/2 ML VIAL IV STA (10:46)
[2021-11-18] MEDS ORDERED: IPRATROPIUM 0.5 MG/2.5 ML NEBU INHALATION STA (10:46)
--- NOTE | 2021-11-18 10:49 | ED ---
General Adult HPI - General Chief complaint: Shortness of Breath Stated complaint: MIK,Weakness Time Seen by Provider: 11/18/21 10:00 Source: patient, RN notes reviewed, old records reviewed Mode of arrival: wheelchair Limitations: no limitations - History of Present Illness Initial comments: This is a 61-year-old male who presents emergency Department stating that he has been a lifelong smoker and won't quit. Patient states she's had difficulty leno thing over the last couple of days. Patient states he's noticed a little bit of a cough but no significant sputum production. Patient denies any chest pain or palpitations. Patient denies abdominal pain patient denies nausea vomiting diarrhea. Patient denies lightheadedness or dizziness. Patient denies any swelling to the legs or calf tenderness. Patient states he did get the July Systems[employer] vaccine - Related Data Home Medications Medication Instructions Recorded Confirmed Carvedilol 25 mg PO BID 12/21/13 03/11/21 Acetaminophen [Tylenol] 325 mg PO DAILY 06/30/17 03/11/21 Atorvastatin [Lipitor] 20 mg PO HS 06/30/17 03/11/21 Furosemide [Lasix] 20 mg PO DAILY 06/30/17 03/11/21 Nitroglycerin Sl Tabs [Nitrostat] 0.4 mg SUBLINGUAL Q5M PRN 06/30/17 03/11/21 Omeprazole 20 mg PO BID 06/30/17 03/11/21 ALPRAZolam [Xanax] 1 mg PO BID PRN 03/11/21 03/11/21 Aspirin EC [Ecotrin Low Dose] 81 mg PO DAILY 03/11/21 03/11/21 Budesonide/Formoterol Fumarate 2 puff INHALATION RT-BID 03/11/21 03/11/21 [Symbicort 160-4.5 Mcg Inhaler] Clobetasol Propionate [Temovate 1 applic TOPICAL BID 03/11/21 03/11/21 0.05% Cream] Hydrocortisone Cream 1 applic TOPICAL BID 03/11/21 03/11/21 [Hydrocortisone 2.5% Cream] Isosorbide Mononitrate ER [Imdur] 30 mg PO DAILY 03/11/21 03/11/21 NIFEdipine [NIFEdipine ER] 30 mg PO DAILY 03/11/21 03/11/21 Potassium Chloride ER [K-Dur 20] 20 meq PO BID 03/11/21 03/11/21 Triamcinolone 0.1% Cream [Kenalog 1 applicatio TOPICAL BID 03/11/21 03/11/21 0.1% Cream] Previous Rx's Medication Instructions Recorded Cyclobenzaprine [Flexeril] 10 mg PO TID PRN #15 tab 03/11/21 Albuterol Inhaler [Ventolin Hfa 2 puff INHALATION RT-QID #18 gm 11/18/21 Inhaler] predniSONE [Deltasone] 40 mg PO DAILY #8 tab 11/18/21 Allergies Allergy/AdvReac Type Severity Reaction Status Date / Time No Known Allergies Allergy Verified 11/18/21 10:02 Review of Systems ROS Statement: Those systems with pertinent positive or pertinent negative responses have been documented in the HPI. ROS Other: All systems not noted in ROS Statement are negative. Past Medical History Past Medical History: Coronary Artery Disease (CAD), Chest Pain / Angina, COPD, CVA/TIA Additional Past Medical History / Comment(s): PT STATES HAD BLOOD CLOT NEAR HEART WAS PASSING OUT- HAD STROKE & SEVERAL TIA'S- AFFECTED SPEECH. PT STATES HARD TO WALK VERY FAR History of Any Multi-Drug Resistant Organisms: None Reported Past Surgical History: Adenoidectomy, Heart Catheterization, Tonsillectomy Additional Past Surgical History / Comment(s): HEART CATH 2000 AND . TONSILS & ADENOIDS REMOVED Past Anesthesia/Blood Transfusion Reactions: No Reported Reaction Past Psychological History: No Psychological Hx Reported Smoking Status: Current every day smoker Past Alcohol Use History: None Reported Past Drug Use History: None Reported - Past Family History Father Family Medical History: COPD Additional Family Medical History / Comment(s): FROM PERFORATED GASTRIC ULCER Mother Family Medical History: Cancer Additional Family Medical History / Comment(s): Patient stated mom of cancer, but not sure what kind. Sister(s) Family Medical History: Cancer Additional Family Medical History / Comment(s): Patient stated that little sister of lung cancer about at 30. General Exam - General Exam Comments Initial Comments: GENERAL: Patient is well-developed and well-nourished. Patient is nontoxic and well- hydrated and is in mild distress. ENT: Neck is soft and supple. No significant lymphadenopathy is noted. Oropharynx is clear. Moist mucous membranes. Neck has full range of motion without eliciting any pain. EYES: The sclera were anicteric and conjunctiva were pink and moist. Extraocular movements were intact and pupils were equal round and reactive to light. Eyelids were unremarkable. PULMONARY: Unlabored respirations. Good breath sounds bilaterally. Patient is diffusely wheezing CARDIOVASCULAR: There is a regular rate and rhythm without any murmurs gallops or rubs. ABDOMEN: Soft and nontender with normal bowel sounds. No palpable organomegaly was noted. There is no palpable pulsatile mass. SKIN: Skin is clear with no lesions or rashes and otherwise unremarkable. NEUROLOGIC: Patient is alert and oriented x3. Cranial nerves II through XII are grossly intact. Motor and sensory are also intact. Normal speech, volume and content. Symmetrical smile. MUSCULOSKELETAL: Normal extremities with adequate strength and full range of motion. LYMPHATICS: No significant lymphadenopathy is noted PSYCHIATRIC: Normal psychiatric evaluation. Limitations: no limitations Course Vital Signs 11/18/21 11/18/21 11/18/21 09:57 10:26 10:28 Temperature 98.6 F Pulse Rate 94 72 Respiratory 24 22 Rate Blood Pressure 157/93 169/97 O2 Sat by Pulse 96 96 Oximetry 11/18/21 11/18/21 11:16 11:32 Temperature Pulse Rate 95 92 Respiratory Rate Blood Pressure O2 Sat by Pulse Oximetry Medical Decision Making - Medical Decision Making EKG shows sinus rhythm with occasional PVC at 93 bpm TN interval is 164 QRS is 112 QT interval 370 QTC is 421 per patient's EKG shows no ST segment elevation or depression. Chest x-ray shows no acute abnormalities. Patient has a lung nodule that he'll need to follow-up with his primary medical care doctor. Patient received a breathing treatment emergency department as well as steroids he states he feels better and he wants to be discharged home. I offered him another treatment he stated he did not want and wanted to go home I offered him admission he did not want anyone to go home. - Lab Data Result diagrams: 11/18/21 11:21 11/18/21 11:21 Lab Results 11/18/21 11/18/21 11/18/21 Range/Units 11:21 11:21 11:21 WBC 7.3 (3.8-10.6) k/uL RBC 4.69 (4.30-5.90) m/uL Hgb 16.1 (13.0-17.5) gm/dL Hct 48.0 (39.0-53.0) % MCV 102.5 H (80.0-100.0) fL MCH 34.2 (25.0-35.0) pg MCHC 33.4 (31.0-37.0) g/dL RDW 13.5 (11.5-15.5) % Plt Count 140 L (150-450) k/uL MPV 7.8 Neutrophils % 81 % Lymphocytes % 10 % Monocytes % 5 % Eosinophils % 2 % Basophils % 1 % Neutrophils # 5.9 (1.3-7.7) k/uL Lymphocytes # 0.7 L (1.0-4.8) k/uL Monocytes # 0.4 (0-1.0) k/uL Eosinophils # 0.2 (0-0.7) k/uL Basophils # 0.1 (0-0.2) k/uL Macrocytosis Slight PT 10.7 (9.0-12.0) sec INR 1.0 (<1.2) APTT 27.2 (22.0-30.0) sec Sodium 140 (137-145) mmol/L Potassium 3.7 (3.5-5.1) mmol/L Chloride 99 (98-107) mmol/L Carbon Dioxide 33 H (22-30) mmol/L Anion Gap 8 mmol/L BUN 7 L (9-20) mg/dL Creatinine 0.61 L (0.66-1.25) mg/dL Est GFR (CKD-EPI)AfAm >90 (>60 ml/min/1.73 sqM) Est GFR (CKD-EPI)NonAf >90 (>60 ml/min/1.73 sqM) Glucose 134 H (74-99) mg/dL Plasma Lactic Acid Emery (0.7-2.0) mmol/L Calcium 8.6 (8.4-10.2) mg/dL Magnesium 2.0 (1.6-2.3) mg/dL Total Bilirubin 0.5 (0.2-1.3) mg/dL AST 24 (17-59) U/L ALT 20 (4-49) U/L Alkaline Phosphatase 79 (38-126) U/L Troponin I (0.000-0.034) ng/mL NT-Pro-B Natriuret Pep pg/mL Total Protein 7.3 (6.3-8.2) g/dL Albumin 4.3 (3.5-5.0) g/dL 11/18/21 11/18/21 11/18/21 Range/Units 11:21 11:21 11:21 WBC (3.8-10.6) k/uL RBC (4.30-5.90) m/uL Hgb (13.0-17.5) gm/dL Hct (39.0-53.0) % MCV (80.0-100.0) fL MCH (25.0-35.0) pg MCHC (31.0-37.0) g/dL RDW (11.5-15.5) % Plt Count (150-450) k/uL MPV Neutrophils % % Lymphocytes % % Monocytes % % Eosinophils % % Basophils % % Neutrophils # (1.3-7.7) k/uL Lymphocytes # (1.0-4.8) k/uL Monocytes # (0-1.0) k/uL Eosinophils # (0-0.7) k/uL Basophils # (0-0.2) k/uL Macrocytosis PT (9.0-12.0) sec INR (<1.2) APTT (22.0-30.0) sec Sodium (137-145) mmol/L Potassium (3.5-5.1) mmol/L Chloride (98-107) mmol/L Carbon Dioxide (22-30) mmol/L Anion Gap mmol/L BUN (9-20) mg/dL Creatinine (0.66-1.25) mg/dL Est GFR (CKD-EPI)AfAm (>60 ml/min/1.73 sqM) Est GFR (CKD-EPI)NonAf (>60 ml/min/1.73 sqM) Glucose (74-99) mg/dL Plasma Lactic Acid Emery 1.6 (0.7-2.0) mmol/L Calcium (8.4-10.2) mg/dL Magnesium (1.6-2.3) mg/dL Total Bilirubin (0.2-1.3) mg/dL AST (17-59) U/L ALT (4-49) U/L Alkaline Phosphatase (38-126) U/L Troponin I 0.019 (0.000-0.034) ng/mL NT-Pro-B Natriuret Pep 210 pg/mL Total Protein (6.3-8.2) g/dL Albumin (3.5-5.0) g/dL Disposition Clinical Impression: COPD exacerbation Disposition: HOME SELF-CARE Instructions (If sedation given, give patient instructions): COPD (Chronic Obst ructive Pulmonary Disease) (ED) Prescriptions: predniSONE [Deltasone] 40 mg PO DAILY #8 tab Albuterol Inhaler [Ventolin Hfa Inhaler] 2 puff INHALATION RT-QID #18 gm Is patient prescribed a controlled substance at d/c from ED?: No Referrals: Yao Tinajero DO [Primary Care Provider] - 1-2 days Time of Disposition: 12:45
--- NOTE | 2021-11-18 11:11 | XR ---
EXAMINATION TYPE: XR chest 2V DATE OF EXAM: 11/18/2021 COMPARISON: Chest x-ray June 30, 2017 HISTORY: Shortness of breath for a few days and cough. TECHNIQUE: Frontal and lateral views of the chest are obtained. FINDINGS: There is mild chronic parenchymal changes bilaterally without suspicious new focal air spa ce opacity, pleural effusion, or pneumothorax seen. Small left hilar chronic nodules redemonstrated. Possible new or enlarging 1.5 cm anterior left lower lobe nodule on 2 views warrants nonemergent foll ow-up. The cardiac silhouette size is stable and upper limits of normal. The osseous structures are intact. IMPRESSION: Mild chronic changes without acute pulmonary process. Follow-up nonemergent CT advised t o better assess left lower lobe nodule.
[2021-11-18 11:56] LABS: Basophils # (A) 0.1 k/uL (0-0.2); Basophils % (A) 1 %; Eosinophils # (A) 0.2 k/uL (0-0.7); Eosinophils % (A) 2 %; HGB 16.1 gm/dL (13.0-17.5); Lymphocytes # (A) 0.7 k/uL (1.0-4.8); Lymphocytes % (A) 10 %; MCH 34.2 pg (25.0-35.0); MCHC 33.4 g/dL (31.0-37.0); MCV 102.5 fL (80.0-100.0); Macrocytosis Slight; Mean Platelet Volume 7.8; Monocytes # (A) 0.4 k/uL (0-1.0); Monocytes % (A) 5 %; Neutrophils # (A) 5.9 k/uL (1.3-7.7); Neutrophils % (A) 81 %; Platelet Count 140 k/uL (150-450); RBC 4.69 m/uL (4.30-5.90); RDW 13.5 % (11.5-15.5); WBC 7.3 k/uL (3.8-10.6)
[2021-11-18 12:04] LABS: Partial Thromboplastin Time 27.2 sec (22.0-30.0); Prothrombin Time 10.7 sec (9.0-12.0)
[2021-11-18 12:13] LABS: ALT 20 U/L (4-49); AST 24 U/L (17-59); African American GFR (CKD) >90 (>60 ml/min/1.73 sqM); Albumin 4.3 g/dL (3.5-5.0); Alkaline Phosphatase 79 U/L (38-126); Anion Gap 8 mmol/L; Blood Urea Nitrogen 7 mg/dL (9-20); Calcium 8.6 mg/dL (8.4-10.2); Carbon Dioxide 33 mmol/L (22-30); Chloride 99 mmol/L (98-107); Glucose 134 mg/dL (74-99); Non-African American GFR(CKD) >90 (>60 ml/min/1.73 sqM); Potassium 3.7 mmol/L (3.5-5.1); Sodium 140 mmol/L (137-145); Total Bilirubin 0.5 mg/dL (0.2-1.3); Total Protein 7.3 g/dL (6.3-8.2)
[2021-11-18 13:52] VITALS: BP 169/101; PULSE 97; RESP 16; TEMP 98.5
== END 2021-11-18 14:06 | disposition home or self-care (01) ==
LOC: EC 09:49
DX: J44.1 Chronic obstructive pulmonary disease with (acute) exacerbation (principal); F17.200 Nicotine dependence, unspecified, uncomplicated; I25.10 Atherosclerotic heart disease of native coronary artery without angina pectoris; Z79.51 Long term (current) use of inhaled steroids; Z79.82 Long term (current) use of aspirin; Z86.73 Personal history of transient ischemic attack (TIA), and cerebral infarction without residual deficits
CPT/HCPCS: 36415; 94640; 93005; 83880; 80053; 83605; 83735; 84484; 85025; 85610; 85730; 87040; 71046; 99285; 96374; J2930

== ENCOUNTER → 2021-12-10 | Outpatient (CLI) | payer MEDICARE, OTHER | END | disposition home or self-care (01) | LOC: RADCTMAIN 07:18 | PROVIDERS: ATTEND Family Medicine | DX: Z53.9 Procedure and treatment not carried out, unspecified reason (principal) ==

== ENCOUNTER 2022-03-27 09:24 | Day surgery (SDC) | payer MEDICARE, OTHER ==
[2022-03-25 11:08] VITALS: BMI 31.1
[~2022-03-27 09:24] MED LIST: ALPRAZolam 0.25 MG TAB PO PRN; ASPIRIN 325 MG TAB PO PRN; SODIUM CHLORIDE 0.9% 1,000 ML in EMPTY BAG 1 BAG IV ONE
[2022-03-27 10:12] LABS: Basophils # (A) 0.1 k/uL (0-0.2); Basophils % (A) 1 %; Eosinophils # (A) 0.3 k/uL (0-0.7); Eosinophils % (A) 3 %; HCT 48.6 % (39.0-53.0); HGB 16.5 gm/dL (13.0-17.5); Lymphocytes # (A) 1.8 k/uL (1.0-4.8); Lymphocytes % (A) 18 %; MCH 34.1 pg (25.0-35.0); MCV 100.3 fL (80.0-100.0); Monocytes # (A) 0.4 k/uL (0-1.0); Monocytes % (A) 4 %; Neutrophils # (A) 7.8 k/uL (1.3-7.7); Neutrophils % (A) 75 %; Platelet Count 186 k/uL (150-450); RBC 4.85 m/uL (4.30-5.90); RDW 12.6 % (11.5-15.5); WBC 10.4 k/uL (3.8-10.6)
[2022-03-27 10:19] VITALS: RESP 16; TEMP 98.9
[2022-03-27 10:28] LABS: African American GFR (CKD) >90 (>60 ml/min/1.73 sqM); Anion Gap 12 mmol/L; Blood Urea Nitrogen 10 mg/dL (9-20); Calcium 9.3 mg/dL (8.4-10.2); Carbon Dioxide 26 mmol/L (22-30); Chloride 102 mmol/L (98-107); Glucose 164 mg/dL (74-99); Non-African American GFR(CKD) >90 (>60 ml/min/1.73 sqM); Potassium 3.9 mmol/L (3.5-5.1); Sodium 140 mmol/L (137-145)
[2022-03-27] MEDS ORDERED: fentaNYL (PF) 50 MCG/ML 2 ML AMP ONE (10:44)
[2022-03-27] MEDS ORDERED: HEPARIN SODIUM 1,000 UN/ML (10ML VL) ONE (10:44)
[2022-03-27] MEDS ORDERED: MIDAZOLAM 2 MG/2 ML VIAL IV ONE ×2 (10:52→10:55)
[2022-03-27] MEDS ORDERED: fentaNYL (PF) 50 MCG/ML 2 ML AMP IV ONE ×2 (10:55→11:04)
[2022-03-27] MEDS ORDERED: LIDOCAINE 1% INJ 10MG/ML (30 ML VIAL-PF) SQ ONE ×2 (10:57→11:00)
[2022-03-27] MEDS ORDERED: CLOPIDOGREL 75 MG TAB PO ONE (11:27)
[2022-03-27] MEDS ORDERED: CLOPIDOGREL 75 MG TAB ONE (11:27)
[2022-03-27] MEDS ORDERED: IOPAMIDOL-250 100ML BTL INTRAARTER ONE (11:28)
--- NOTE | 2022-03-27 11:52 | P.OP ---
Date of Procedure: 03/27/22 Description of Procedure: Preoperative diagnosis: [Peripheral arterial disease, iliac artery stenosis, lifestyle limiting claudication] Postoperative diagnosis: Same Procedure: [Ultrasound-guided left common femoral artery access Left iliofemoral angiogram Aortogram Percutaneous transluminal balloon angioplasty 5 x 40 of left common and external iliac artery Percutaneous transluminal stent placement of 7 x 60 left common and external iliac artery Intra-arterial pressure measurements and interpretation 32 min moderate conscious sedation] Surgeon: Saundra Smith D.O. EBL: [Less than 10 mL] IV fluids: [See records] Urine output: [Not measured] Drains: [None] Complications: [None immediately apparent] Condition: [Stable to recovery] Operative indication and findings: [Patient is a 61-year-old male who has significant left lower extremity pain. He states he has little to no right- sided pain. Previous angiogram did show iliac artery stenosis at the distal common, proximal external iliac artery on the left. There is some mild stenosis of the right common iliac however at this time given he has no pain in his right lower extremity we'll plan to focus on the left and treat the left side. Risks and benefits were discussed. He seemingly understood and is willing to proceed.] Procedure in detail: [Patient was taken to the special suite and placed in supine position. Bilateral groins are prepped and draped in usual sterile fashion. A preprocedure timeout was performed, all parties were in agreement. Using ultrasound, the left common femoral artery was identified. The skin overlying was anesthetized was anesthetized with 1% lidocaine plain. Using a micro-access needle, the artery was accessed on first attempt under direct visualization. Seldinger technique was used to place a 6-Turkmen sheath. An angiogram was performed via the 6-Turkmen sheath showing near occlusion of the d istal common iliac artery as previously visualized. The stump pressures were taken of this area through the sheath and measured 80 systolic approximately blunted waveform. Catheters and wires were then used to cross the lesion. A crossing catheter was necessary to cross the lesion. An aortogram was performed through the catheter to confirm luminal gain. That point a 5 x 40 balloon was used to angioplasty the common and external iliac artery. This did improve the measured flow into the low 100s systolic pressure. That point it was decided to place a stent after repeat angiogram was performed. A 7 x 60 stent was placed with good apposition. A noncovered stent was utilized due to the location across the bifurcation of the internal iliac artery. Repeat imaging showed significant improvement of the area of stenosis and pressure measurements were around 100 which correlated well with his cuff pressure of 139 at that point. There still was an area of calcium that was visualized on angiogram however given the significant improvement of the pressure measurements the procedure was concluded. Catheters and wires were removed. The sheath was removed and manual pressure was held until hemostasis was achieved.] Plan - Discharge Summary Discharge Rx Participant: Yes New Discharge Prescriptions: New Clopidogrel [Plavix] 75 mg PO DAILY #30 tablet No Action Carvedilol 25 mg PO BID Nitroglycerin Sl Tabs [Nitrostat] 0.4 mg SUBLINGUAL Q5M PRN PRN Reason: Chest Pain Acetaminophen [Tylenol] 325 mg PO DAILY Furosemide [Lasix] 20 mg PO DAILY Atorvastatin [Lipitor] 20 mg PO HS Omeprazole 20 mg PO BID PRN PRN Reason: Heartburn Budesonide/Formoterol Fumarate [Symbicort 160-4.5 Mcg Inhaler] 2 puff INHALATION RT-BID Albuterol Nebulized [Ventolin Nebulized (Accuneb)] 1.25 mg INHALATION BID Triamcinolone 0.1% Cream [Kenalog 0.1% Cream] 1 applicatio TOPICAL BID PRN PRN Reason: Skin Irritation Clobetasol Propionate [Temovate 0.05% Cream] 1 applic TOPICAL BID PRN PRN Reason: Skin Irritation Hydrocortisone Cream [Hydrocortisone 2.5% Cream] 1 applic TOPICAL BID PRN PRN Reason: Skin Irritation ALPRAZolam [Xanax] 1 mg PO BID PRN PRN Reason: Anxiety Aspirin EC [Ecotrin Low Dose] 325 mg PO DAILY Potassium Chloride ER [K-Dur 20] 20 meq PO DAILY Isosorbide Mononitrate ER [Imdur] 30 mg PO DAILY Albuterol Inhaler [Ventolin Hfa Inhaler] 2 puff INHALATION RT-QID PRN PRN Reason: Shortness Of Breath Discharge Medication List Carvedilol 25 mg PO BID 12/21/13 [History] Acetaminophen [Tylenol] 325 mg PO DAILY 06/30/17 [History] Atorvastatin [Lipitor] 20 mg PO HS 06/30/17 [History] Furosemide [Lasix] 20 mg PO DAILY 06/30/17 [History] Nitroglycerin Sl Tabs [Nitrostat] 0.4 mg SUBLINGUAL Q5M PRN 06/30/17 [History] Omeprazole 20 mg PO BID PRN 06/30/17 [History] ALPRAZolam [Xanax] 1 mg PO BID PRN 03/11/21 [History] Aspirin EC [Ecotrin Low Dose] 325 mg PO DAILY 03/11/21 [History] Budesonide/Formoterol Fumarate [Symbicort 160-4.5 Mcg Inhaler] 2 puff INHALATION RT-BID 03/11/21 [History] Clobetasol Propionate [Temovate 0.05% Cream] 1 applic TOPICAL BID PRN 03/11/21 [History] Hydrocortisone Cream [Hydrocortisone 2.5% Cream] 1 applic TOPICAL BID PRN 03/11/21 [History] Isosorbide Mononitrate ER [Imdur] 30 mg PO DAILY 03/11/21 [History] Potassium Chloride ER [K-Dur 20] 20 meq PO DAILY 03/11/21 [History] Triamcinolone 0.1% Cream [Kenalog 0.1% Cream] 1 applicatio TOPICAL BID PRN 03/11/21 [History] Albuterol Inhaler [Ventolin Hfa Inhaler] 2 puff INHALATION RT-QID PRN 02/18/22 [History] Albuterol Nebulized [Ventolin Nebulized (Accuneb)] 1.25 mg INHALATION BID 02/18/22 [History] Clopidogrel [Plavix] 75 mg PO DAILY #30 tablet 03/27/22 [Rx] Follow up Appointment(s)/Referral(s): Saundra Smith DO [STAFF PHYSICIAN] - 2 Weeks Activity/Diet/Wound Care/Special Instructions: No heavy lifting for 2 weeks. May resume diet as tolerated. Follow-up in 2 weeks. Discharge Disposition: HOME SELF-CARE
--- NOTE | 2022-03-27 12:19 | IR ---
Fluoroscopy HISTORY: Peripheral vascular occlusive disease 4.5 minutes fluoroscopy time supplied to the referring clinician. 135 intraoperative C-arm images do cument the procedure. See dictated report from vascular surgery.
[2022-03-27 16:47] VITALS: BP 164/77; PULSE 74
== END 2022-03-27 18:02 | disposition home or self-care (01) ==
LOC: CATHCVL 09:24
PROVIDERS: ATTEND Surgery
DX: I70.212 Atherosclerosis of native arteries of extremities with intermittent claudication, left leg (principal); Z86.73 Personal history of transient ischemic attack (TIA), and cerebral infarction without residual deficits; H91.90 Unspecified hearing loss, unspecified ear; E78.5 Hyperlipidemia, unspecified; I10 Essential (primary) hypertension; R91.1 Solitary pulmonary nodule; Z80.9 Family history of malignant neoplasm, unspecified; Z81.1 Family history of alcohol abuse and dependence; F17.200 Nicotine dependence, unspecified, uncomplicated; I25.10 Atherosclerotic heart disease of native coronary artery without angina pectoris; Z79.51 Long term (current) use of inhaled steroids; Z79.899 Other long term (current) drug therapy
CPT/HCPCS: 37221; 80048; 85025; C1769 ×4; C1894; C1725; C1887; C1876; J2250; J2001; J3010; Q9966

== ENCOUNTER → 2024-02-15 | Outpatient (CLI) | payer MEDICARE, OTHER | LOC: LABPRL 10:55 | PROVIDERS: ATTEND Family Medicine | DX: Z12.5 Encounter for screening for malignant neoplasm of prostate (principal); J44.9 Chronic obstructive pulmonary disease, unspecified; E11.9 Type 2 diabetes mellitus without complications; I73.9 Peripheral vascular disease, unspecified; E55.9 Vitamin D deficiency, unspecified | CPT/HCPCS: 80053; 80061; 82306; 83036; 85025 ==

== ENCOUNTER → 2025-01-12 | Outpatient (CLI) | payer MEDICARE, OTHER ==
[2025-01-12 15:35] LABS: Basophils # (A) 0.06 X 10*3/uL (0.00-0.10); Basophils % (A) 0.8 %; Eosinophils # (A) 0.15 X 10*3/uL (0.04-0.35); Eosinophils % (A) 2.0 %; HCT 50.9 % (39.6-50.0); HGB 16.9 g/dL (13.0-17.0); Immature Grans, Automated 0.40 %; Lymphocytes # (A) 1.79 X 10*3/uL (0.90-5.00); Lymphocytes % (A) 24.2 %; MCH 33.8 pg (27.0-32.0); MCHC 33.2 g/dL (32.0-37.0); MCV 101.8 FL (80.0-97.0); Monocytes # (A) 0.52 X 10*3/uL (0.20-1.00); Monocytes % (A) 7.0 %; NRBC Per 100 WBC 0 X 10*3/uL (0.00-0.01); Neutrophils # (A) 4.84 X 10*3/uL (1.80-7.70); Neutrophils % (A) 65.6 %; Platelet Count 154 X 10*3/uL (140-440); RBC 5.00 X 10*6/uL (4.40-5.60); RDW 12.7 % (11.5-14.5); WBC 7.39 X 10*3/uL (4.50-10.00)
[2025-01-12 15:53] LABS: ALT 32 U/L (10-49); AST 31 U/L (14-35); Albumin 4.7 g/dL (3.8-4.9); Albumin/Globulin Ratio 2.24 Ratio (1.60-3.17); Alkaline Phosphatase 84 U/L (41-126); Anion Gap 12.20 mmol/L (4.00-12.00); BUN/Creat Ratio 10.14 Ratio (12.00-20.00); Blood Urea Nitrogen 7.1 mg/dL (9.0-27.0); Calcium 9.1 mg/dL (8.7-10.3); Carbon Dioxide 26.8 mmol/L (21.6-31.8); Chloride 102 mmol/L (96-109); Cholesterol 222.00 mg/dL (0.00-200.00); Globulin 2.1 g/dL (1.6-3.3); Glucose 172 mg/dL (70-110); HDL Cholesterol 27.30 mg/dL (40.00-60.00); LDL Cholesterol,Calculated 146.5 mg/dL (0.0-131.0); Potassium 3.8 mmol/L (3.5-5.5); Sodium 141 mmol/L (135-145); Total Protein 6.8 g/dL (6.2-8.2); Triglycerides 241.00 mg/dL (0.00-149.00); VLDL Calculation 48.20 mg/dL (5.00-40.00)
[2025-01-12 15:54] LABS: Prostate Specific Antigen 0.73 ng/mL (0.000-4.500)
== END | disposition home or self-care (01) ==
LOC: LABWHC1 11:05
PROVIDERS: ATTEND Family Medicine
DX: Z76.89 Persons encountering health services in other specified circumstances (principal)
CPT/HCPCS: 36415; 80053; 80061; 82306; 83036; 84153; 85025